=== PATIENT | male | born 1990 | race Caucasian/White ===

== ENCOUNTER 2020-06-03 14:07 | Emergency (ER) | payer OTHER ==
[~2020-06-03] VITALS: Ht 177.8 cm; Wt 99.8 kg
[2020-06-03 14:45] LABS: ABSOLUTE BASOPHILS 0.1 thou/uL (0.0-0.2); ABSOLUTE EOSINOPHILS 0.1 thou/uL (0.0-0.7); ABSOLUTE LYMPHOCYTES 2.5 thou/uL (0.8-5.3); ABSOLUTE MONOCYTES 0.6 thou/uL (0.0-1.2); ABSOLUTE NEUTROPHILS 3.4 thou/uL (1.6-8.1); BASOPHILS 1.3 %; EOSINOPHILS 1.6 %; HEMATOCRIT 47.3 % (42.0-52.0); HEMOGLOBIN 16.3 gm/dL (14.0-18.0); LYMPHOCYTES 37.7 %; MCH 31.4 pg (26.0-34.0); MCHC 34.5 g/dL (28.0-37.0); MONOCYTES 8.6 %; MPV 7.1 fl. (7.2-11.1); NUCLEATED RBCS 0 /100WBC; PLATELET COUNT* 238 thou/uL (150-400); POLYS 50.8 %; RDW-CV 13.5 % (10.5-14.5); WBC 6.7 thou/uL (4.0-11.0)
[2020-06-03 14:49] LABS: ANION GAP 6 mmol/L (7-16); BUN 13 mg/dL (7-18); CALCIUM 8.1 mg/dL (8.5-10.1); CHLORIDE 105 mmol/L (98-107); CO2 27 mmol/L (21-32); CREATININE 0.9 mg/dL (0.6-1.3); GLUCOSE 93 mg/dL (70-99); SODIUM 138 mmol/L (136-145)
[2020-06-03 14:53] LABS: ALBUMIN 2.3 g/dL (3.4-5.0); ALKALINE PHOSPHATASE 70 U/L (46-116); SGOT 84 U/L (15-37); SGPT 92 U/L (30-65); TOTAL PROTEIN 6.1 g/dL (6.4-8.2)
[2020-06-03 14:54] LABS: TOTAL BILIRUBIN < 0.1 mg/dL (<0.1-1.0)
[2020-06-03] MEDS ORDERED: ZPAK PO (14:58)
[2020-06-03] MEDS ORDERED: PREDNISONE 20 M20 M1 PO (14:58)
[2020-06-03] MEDS ORDERED: ZOFRAN ODT4 MG SUBLING (15:09)
[2020-06-03 15:18] VITALS: BP 139/96
== END 2020-06-03 15:19 | disposition home or self-care (01) ==
LOC: M.ERS 14:07
PROVIDERS: Family Medicine
DX: U07.1 COVID-19 (principal)